=== PATIENT | male | born 1965 | race Two or more races ===

== ENCOUNTER 2018-03-09 14:13 | Emergency (ER) | payer MEDICAID ==
[~2018-03-09] VITALS: Ht 170.2 cm; Wt 68.2 kg
[~2018-03-09 14:13] MED LIST: ALBU8HFA PO; CYCL-1 PO
[2018-03-09 14:38] LABS: BASOPHILS % (AUTO) 0.5 % (0-1); EOSINOPHILS # (AUTO) 0.1 X10'3 (0-0.9); EOSINOPHILS % (AUTO) 1.7 % (0-6); HEMATOCRIT 40.7 % (42.0-52.0); LYMPHOCYTES # (AUTO) 2.1 X10'3 (1.1-4.8); LYMPHOCYTES % (AUTO) 30.3 % (21-51); MEAN CORPUSCULAR HEMOGLOBIN 31.6 PG (27.0-31.0); MEAN CORPUSCULAR HGB CONC 34.3 % (33.0-36.5); MEAN CORPUSCULAR VOLUME 92.1 FL (78-98); MEAN PLATELET VOLUME 6.9 FL (7.4-10.4); MONOCYTES # (AUTO) 0.4 X10'3 (0-0.9); MONOCYTES % (AUTO) 6.1 % (2-12); NEUTROPHILS # (AUTO) 4.2 X10'3 (1.8-7.7); NEUTROPHILS % (AUTO) 61.4 % (42-75); PLATELET COUNT 319 X10'3 (140-440); RED BLOOD COUNT 4.42 X10'6 (4.70-6.10); RED CELL DISTRIBUTION WIDTH 13.1 % (11.5-14.5); WHITE BLOOD COUNT 6.8 X10'3 (4.5-11.0)
[2018-03-09 14:46] LABS: PROTHROMBIN TIME 9.2 SECONDS (9.0-12.0)
[2018-03-09 14:47] LABS: INR 0.9 INR; PARTIAL THROMBOPLASTIN TIME 25 SECONDS (22-32)
[2018-03-09 14:48] VITALS: BP 112/68
[2018-03-09 14:49] LABS: ALANINE AMINOTRANSFERASE 66 U/L (12-78); ALBUMIN 3.7 G/DL (3.4-5.0); ALBUMIN/GLOBULIN RATIO 1.1 (1.1-1.5); ALKALINE PHOSPHATASE 90 IU/L (46-116); ANION GAP 6 (8-16); ASPARTATE AMINO TRANSFERASE 26 U/L (10-37); BILIRUBIN,TOTAL 0.2 MG/DL (0.1-1.0); BLOOD UREA NITROGEN 11 MG/DL (7-18); BUN/CREATININE RATIO 14.3 (5.4-32.0); CALCIUM 8.8 MG/DL (8.5-10.1); CHLORIDE 103 MMOL/L (99-107); CREATININE 0.77 MG/DL (0.60-1.10); GLUCOSE 155 MG/DL (70-104); POTASSIUM 4.3 MMOL/L (3.5-5.1); SODIUM 141 MMOL/L (135-145); TOTAL CARBON DIOXIDE 32.2 MMOL/L (24-32); TOTAL PROTEIN 7.1 G/DL (6.4-8.2); eGFR > 90 ML/MIN
== END 2018-03-09 15:05 | disposition home or self-care (01) ==
LOC: ER 14:13
DX: R07.89 Other chest pain (principal); G89.29 Other chronic pain; F12.10 Cannabis abuse, uncomplicated
CPT/HCPCS: 36415; 71045; 80053; 84484; 85025; 85610; 85730; 93005; 99285

== ENCOUNTER 2020-04-11 08:49 | Day surgery (SDC) | payer MEDICAID ==
[2020-04-04 13:57] LABS: BASOPHILS % (AUTO) 0.7 % (0-1); EOSINOPHILS # (AUTO) 0.1 X10'3 (0-0.9); EOSINOPHILS % (AUTO) 0.8 % (0-6); MEAN CORPUSCULAR HEMOGLOBIN 31.7 PG (27.0-31.0); MEAN CORPUSCULAR HGB CONC 34.4 g/dL (33.0-36.5); MONOCYTES # (AUTO) 0.4 X10'3 (0-0.9); MONOCYTES % (AUTO) 6.6 % (2-12); NEUTROPHILS # (AUTO) 3.8 X10'3 (1.8-7.7); NEUTROPHILS % (AUTO) 60.9 % (42-75); PRE OP HEMATOCRIT 42.4 % (42.0-52.0); PRE OP HEMOGLOBIN 14.6 g/dL (14.0-17.9); PRE OP PLATELET COUNT 278 X10'3 (140-440); RED BLOOD COUNT 4.61 X10'6 (4.70-6.10); RED CELL DISTRIBUTION WIDTH 12.9 % (11.5-14.5)
[2020-04-04 14:05] LABS: ALBUMIN 4.1 G/DL (3.4-5.0); ALBUMIN/GLOBULIN RATIO 1.2 (1.1-1.5); ALKALINE PHOSPHATASE 71 IU/L (46-116); BLOOD UREA NITROGEN 11 MG/DL (7-18); BUN/CREATININE RATIO 12.5 (5.4-32.0); CALCIUM 8.9 MG/DL (8.5-10.1); CHLORIDE 106 MMOL/L (99-107); CREATININE 0.88 MG/DL (0.60-1.10); PRE OP ALT 28 U/L (30-65); PRE OP ANION GAP 4 (8-16); PRE OP AST 19 U/L (10-37); PRE OP BILIRUB, TOTAL 0.3 MG/DL (0.0-1.0); PRE OP GLUCOSE 107 MG/DL (70-104); PRE OP POTASSIUM 3.7 MMOL/L (3.4-5.1); PRE OP SODIUM 141 MMOL/L (135-145); TOTAL PROTEIN 7.4 G/DL (6.4-8.2); eGFR 90 ML/MIN
[2020-04-11] VITALS (14 sets, daily range): BP systolic 105–155; BP diastolic 64–90
[~2020-04-11] VITALS: Ht 170.2 cm; Wt 68.9 kg
[~2020-04-11 08:49] MED LIST changes: -ALBU8HFA PO; +BUPIVAcaine/PF 2.5 mg/ml (0.25%) 30ml vial ONE; -CYCL-1 PO; +LIDOcaine 1% 30ml preserv. free vial ONE; +NO HOME MEDS; +ceFAZolin 2gm in dextrose, iso 50 ML IV ONE; +famotidine 20mg tablet PO ONE; +ringers solution, lacted 1,000 ML IV SCH
[2020-04-11] MEDS ORDERED: sevoflurane 250ml liquid IH ONE (11:51)
[2020-04-11] MEDS ORDERED: fentaNYL/PF 50MCG/1 ML 2ML syringe ONE ×2 (11:55→12:28)
[2020-04-11] MEDS ORDERED: midazolam 2 mg/2 ml injection ONE (11:55)
[2020-04-11] MEDS ORDERED: glycopyrrolate 0.2mg/ml inj ONE (12:18)
[2020-04-11] MEDS ORDERED: acetaminophen 1,000mg/100ml IV 100 ML IV ONE (12:18)
[2020-04-11] MEDS ORDERED: ondansetron/PF 4mg/2ml inj ONE (12:18)
[2020-04-11] MEDS ORDERED: neostigmine methylsulfate 1 MG/ML 10ml vial ONE (12:18)
[2020-04-11] MEDS ORDERED: propofol inj 20 ML IV ONE (12:18)
[2020-04-11] MEDS ORDERED: rocuronium 10mg/ml inj IV ONE (12:18)
[2020-04-11] MEDS ORDERED: dexamethasone sod phosphate 4mg/ml inj. ONE (12:18)
[2020-04-11] MEDS ORDERED: LIDOcaine 2% (20mg/ml) 5ml vial ONE (12:18)
[2020-04-11] MEDS ORDERED: meperidine/PF 25mg/ml syringe IV PRN ×2 (12:30)
[2020-04-11] MEDS ORDERED: morphine 2 MG/ML inj. syringe IV PRN (12:30)
[2020-04-11] MEDS ORDERED: proCHLORperazine 10 MG/2 ml inj IV PRN (12:30)
[2020-04-11] MEDS ORDERED: ringers solution, lacted 1,000 ML IV SCH (12:30)
[2020-04-11] MEDS ORDERED: ondansetron/PF 4mg/2ml inj IV PRN (12:30)
--- NOTE | 2020-04-11 13:04 | NUR ---
Received from OR via , accompanied by Anesthesiologist DR CLARK and report given by Anesthesiolgist. AWAKENS TO VOICE. VITALS STABLE. DRESSINGS DI. SHREYAS PAIN. ABD SOFT.
[2020-04-11] MEDS: meperidine/PF 25mg/ml syringe IV PRN ×2 (13:45→13:54)
[2020-04-11] MEDS ORDERED: oxyCODONE/APAP 5-325mg tablet PO PRN ×2 (14:10)
[2020-04-11] MEDS: morphine 4 MG/ML inj SYRINge IV PRN ×2 (14:25→14:44)
[2020-04-11] MEDS ORDERED: ketorolac trometh. 30mg/ml inj. IV ONE (14:25)
--- NOTE | 2020-04-11 16:44 | NUR ---
ALERT AND ORIENTED. VITALS STABLE. DRESSINGS DI. STATES TOLERABLE DISCOMFORT LEVEL. WAS ABLE TO VOID ADEQUATE AMNT. HOME WITH HIS SPOUSE AT THIS TIME.
== END 2020-04-11 16:44 | disposition home or self-care (01) ==
LOC: PAS 08:49
PROVIDERS: ATTEND Surgery
DX: K40.20 Bilateral inguinal hernia, without obstruction or gangrene, not specified as recurrent (principal); Z20.828 Contact with and (suspected) exposure to other viral communicable diseases; F12.90 Cannabis use, unspecified, uncomplicated; Z79.899 Other long term (current) drug therapy; Z80.9 Family history of malignant neoplasm, unspecified
CPT/HCPCS: 36415; 49650; 80053; 82948; 85025; 87635; 93005; C1781; J0131; J1100; J1885; J2001; J2175; J2250; J2270; J2405; J2704; J2710; J3010; J3490; S2900; A4215; A4618; J7120

== ENCOUNTER 2020-04-14 09:30 | Emergency (ER) | payer MEDICAID ==
[~2020-04-14] VITALS: Ht 170.2 cm; Wt 68.6 kg
[~2020-04-14 09:30] MED LIST changes: -BUPIVAcaine/PF 2.5 mg/ml (0.25%) 30ml vial ONE; -LIDOcaine 1% 30ml preserv. free vial ONE; -ceFAZolin 2gm in dextrose, iso 50 ML IV ONE; -famotidine 20mg tablet PO ONE; -ringers solution, lacted 1,000 ML IV SCH
[2020-04-14] MEDS ORDERED: ketorolac trometh inj. 60 MG/2 ML VIAL IM ONE (10:10)
[2020-04-14] MEDS ORDERED: HYDROcodone/acetaminophen 5mg/325mg tablet PO ONE (10:10)
[2020-04-14] MEDS ORDERED: ondansetron 4mg rapidly disintigrating tab PO ONE (10:10)
[2020-04-14] MEDS ORDERED: IBUP-1984 PO (10:37)
[2020-04-14] MEDS ORDERED: ACET-812 PO (10:37)
[2020-04-14 11:27] VITALS: BP 130/62
== END 2020-04-14 11:25 | disposition home or self-care (01) ==
LOC: ER 09:30
DX: N43.3 Hydrocele, unspecified (principal); G89.18 Other acute postprocedural pain
CPT/HCPCS: 76870; 93976; 96372; 99284; J1885

== ENCOUNTER 2023-05-23 19:53 | Emergency (ER) | payer MEDICAID ==
[~2023-05-23] VITALS: Ht 170.2 cm; Wt 68.2 kg
[~2023-05-23 19:53] MED LIST changes: +ACET-812 PO
[2023-05-23 20:04] VITALS: BP 117/69; PULSE 60; RESP 18; TEMP 97.7; O2SAT 98
[2023-05-23 20:21] LABS: BASOPHILS % (AUTO) 0.6 % (0-1); EOSINOPHILS # (AUTO) 0.1 X10'3 (0-0.9); EOSINOPHILS % (AUTO) 2.2 % (0-6); HEMATOCRIT 43.1 % (42.0-52.0); HEMOGLOBIN 14.5 g/dl (14.0-17.9); LYMPHOCYTES # (AUTO) 2.3 X10'3 (1.1-4.8); LYMPHOCYTES % (AUTO) 42.8 % (21-51); MEAN CORPUSCULAR HEMOGLOBIN 32.1 PG (27.0-31.0); MEAN CORPUSCULAR HGB CONC 33.6 g/dL (33.0-36.5); MEAN CORPUSCULAR VOLUME 95.7 FL (78-98); MEAN PLATELET VOLUME 7.5 FL (7.4-10.4); MONOCYTES # (AUTO) 0.4 X10'3 (0-0.9); MONOCYTES % (AUTO) 7.2 % (2-12); NEUTROPHILS # (AUTO) 2.6 X10'3 (1.8-7.7); NEUTROPHILS % (AUTO) 47.2 % (42-75); PLATELET COUNT 282 X10'3 (140-440); RED CELL DISTRIBUTION WIDTH 12.7 % (11.5-14.5); WHITE BLOOD COUNT 5.4 X10'3 (4.5-11.0)
[2023-05-23 20:40] LABS: ALANINE AMINOTRANSFERASE 22 U/L (12-78); ALBUMIN 3.5 G/DL (3.4-5.0); ALBUMIN/GLOBULIN RATIO 1.1 (1.1-1.5); ALKALINE PHOSPHATASE 83 IU/L (46-116); ANION GAP 3 (8-16); ASPARTATE AMINO TRANSFERASE 14 U/L (10-37); BILIRUBIN,TOTAL 0.2 MG/DL (0.1-1.0); BLOOD UREA NITROGEN 9 MG/DL (7-18); BUN/CREATININE RATIO 10.1 (10.0-20.0); CALCIUM 8.7 MG/DL (8.5-10.1); CHLORIDE 106 MMOL/L (99-107); CREATININE 0.89 MG/DL (0.60-1.10); GLUCOSE 100 MG/DL (70-104); POTASSIUM 3.6 MMOL/L (3.5-5.1); PRO BRAIN NATRIURETIC PEPTIDE < 30 PG/ML (0-125); SODIUM 144 MMOL/L (135-145); TOTAL PROTEIN 6.8 G/DL (6.4-8.2); eCRCL 85 ML/MIN; eGFR 88 ML/MIN
== END 2023-05-23 23:34 | disposition left against medical advice (07) ==
LOC: ER 19:53
DX: R07.89 Other chest pain (principal); Z53.21 Procedure and treatment not carried out due to patient leaving prior to being seen by health care provider
CPT/HCPCS: 36415; 71045; 80053; 83880; 84484; 85025; 93005; 99281

== ENCOUNTER 2024-07-21 12:28 | Emergency (ER) | payer MEDICAID ==
[~2024-07-21] VITALS: Ht 170.2 cm; Wt 80.5 kg
[2024-07-21] MEDS ORDERED: ALBU8HFA INH (14:20)
[2024-07-21] MEDS ORDERED: BENZ-38 PO (14:20)
[2024-07-21] MEDS ORDERED: PRED50TA PO (14:20)
[2024-07-21 14:25] VITALS: BP 126/78; PULSE 88; RESP 16; TEMP 98.8; O2SAT 98
== END 2024-07-21 14:27 | disposition home or self-care (01) ==
LOC: ER 12:29
DX: B34.9 Viral infection, unspecified (principal); F12.90 Cannabis use, unspecified, uncomplicated; Z20.822 Contact with and (suspected) exposure to COVID-19
CPT/HCPCS: 36415; 71045; 87502; 87503; 87811; 99284